=== PATIENT | male | born 1960 | race Two or more races ===

== ENCOUNTER 2018-12-29 20:09 | Emergency (ER) | payer MEDICARE, OTHER ==
[~2018-12-29] VITALS: Ht 172.7 cm; Wt 81.6 kg
[2018-12-29 21:18] LABS: Basophils # (auto) 0 uL; Basophils % (auto) 0.6 % (0.0-2.0); Eosinophils # (auto) 0.2 uL; Eosinophils % (auto) 2.7 % (0.0-7.0); Hematocrit 27.1 % (41.0-53.0); Hemoglobin 9.5 g/dL (13.5-17.5); Lymphocytes # (auto) 0.7 uL; Lymphocytes % (auto) 11.4 % (10.0-50.0); Mean Corpuscular Hgb Conc. 35.1 g/dL (32.0-36.0); Mean Corpuscular Volume 94.2 fL (80.0-100.0); Monocytes # (auto) 0.6 uL; Monocytes % (auto) 9.8 % (0.0-12.0); Neutrophils # (auto) 4.9 uL; Neutrophils % (auto) 75.5 % (37.0-80.0); Platelet Count (auto) 137 10^3/uL (140-450); Red Blood Cells 2.88 10^6/uL (4.5-5.90); Red Cell Distribution Width 14.6 % (11.8-14.3); White Blood Cell 6.5 10^3/uL (4.4-10.8)
[2018-12-29 21:33] LABS: INR 1.09 (0.9-1.15); Partial Thromboplastin Time 59.5 sec (23.64-32.05)
[2018-12-29 21:38] LABS: Albumin 3.5 g/dL (3.4-5.0); Potassium 4.3 mmol/L (3.5-5.1)
[2018-12-29 21:41] LABS: BUN/Creatinine Ratio 4.8; Bilirubin, Total 0.6 mg/dL (0.2-1.0); Total Protein 7.1 g/dL (6.4-8.2)
[2018-12-29 23:01] VITALS: BP 163/67
== END 2018-12-29 23:05 | disposition home or self-care (01) ==
LOC: EDBD 20:09 → ER 20:20
DX: T82.590A Other mechanical complication of surgically created arteriovenous fistula, initial encounter (principal); Y83.9 Surgical procedure, unspecified as the cause of abnormal reaction of the patient, or of later complication, without mention of misadventure at the time of the procedure; Y92.89 Other specified places as the place of occurrence of the external cause
CPT/HCPCS: 36415; 80053; 85025; 85610; 85730

== ENCOUNTER 2019-03-13 15:37 | Emergency (ER) | payer MEDICARE, OTHER ==
[~2019-03-13] VITALS: Ht 180.3 cm; Wt 88.5 kg
[2019-03-13] MEDS ORDERED: ACETAMINOPHEN/CODEINE#3 (300/30mg) TAB PO ONE (19:15)
[2019-03-13 20:17] VITALS: BP 162/73
== END 2019-03-13 20:17 | disposition home or self-care (01) ==
LOC: ER 15:37
DX: M79.662 Pain in left lower leg (principal); M79.661 Pain in right lower leg; L29.9 Pruritus, unspecified; I12.0 Hypertensive chronic kidney disease with stage 5 chronic kidney disease or end stage renal disease; N18.6 End stage renal disease

== ENCOUNTER 2020-02-20 13:56 | Inpatient (IN) | payer OTHER, MEDICAID ==
[~2020-02-20] VITALS: Ht 172.7 cm; Wt 90.7 kg
[2020-02-20] MEDS ORDERED: DexAMETHasone SOD PHOS 10MG/1ML VIAL INJ IV ONE (17:15)
[2020-02-20] MEDS ORDERED: AZITHROMYCIN 500MG/ 250ML 250 ML IV ONE (17:15)
[2020-02-20] MEDS ORDERED: ACETAMINOPHEN 325 MG TAB PO ONE (18:45)
[2020-02-20] MEDS ORDERED: MORPHINE SULF INJ 2 MG/ML SYRINGE 1ML IV PRN (21:15)
[2020-02-20] MEDS ORDERED: ACETAMINOPHEN 500 MG TAB PO PRN (21:15)
[2020-02-20] MEDS ORDERED: DOCUSATE SOD 100 MG CAP PO PRN (21:15)
[2020-02-20] MEDS ORDERED: ONDANSETRON HCL 4 MG/2 ML VIAL IV PRN (21:15)
[2020-02-20] MEDS ORDERED: ACETAMINOPHEN 325 MG TAB PO PRN (21:15)
[2020-02-20 23:08] LABS: Basophils # (auto) 0 10 ^3/uL (0-0.2); Eosinophils # (auto) 0 10 ^3/uL (0-0.8); Eosinophils % (auto) 0.1 % (0.0-7.0); Lymphocytes # (auto) 0.1 10 ^3/uL (0.4-5.4); Lymphocytes % (auto) 3.8 % (10.0-50.0); Monocytes # (auto) 0.1 10 ^3/uL (0-1.3); Monocytes % (auto) 2.9 % (0.0-12.0); Neutrophils # (auto) 2.1 10 ^3/uL (1.6-8.6); Red Blood Cells 2.32 10^6/uL (4.5-5.90); White Blood Cell 2.3 10^3/uL (4.4-10.8)
[2020-02-20 23:09] LABS: Basophils % (auto) 0.3 % (0.0-2.0); Hematocrit 21.4 % (41.0-53.0); Hemoglobin 7.5 g/dL (13.5-17.5); Mean Corpuscular Hemoglobin 32.3 pg (28.0-32.0); Mean Corpuscular Volume 92.2 fL (80.0-100.0); Neutrophils % (auto) 92.9 % (37.0-80.0); Nucleated Red Blood Cells % 0.4 %; Platelet Count (auto) 88 10^3/uL (140-450); Red Cell Distribution Width 17.6 % (11.8-14.3)
[2020-02-20 23:25] LABS: Alanine Aminotransferase 39 U/L (16-61); Albumin 2.6 g/dL (3.4-5.0); Anion Gap 10 (5-15); Aspartate Aminotransferase 56 U/L (15-37); BUN/Creatinine Ratio 11.8; Calcium 9.1 mg/dL (8.5-10.1); Carbon Dioxide 28 mmol/L (21-32); Chloride 94 mmol/L (98-107); GFR African American 9 mL/min; GFR Non-African American 7 mL/min; Glucose 177 mg/dL (74-106); Magnesium 2.5 mg/dL (1.6-2.6); Sodium 132 mmol/L (136-145)
[2020-02-20 23:27] LABS: INR 1.02 (0.9-1.15); Partial Thromboplastin Time 31.9 sec (23.0-31.2)
[2020-02-20 23:30] LABS: Alkaline Phosphatase 133 U/L (45-117); Bilirubin, Total 0.8 mg/dL (0.2-1.0); Total Protein 7.5 g/dL (6.4-8.2)
[2020-02-20 23:37] LABS: Blood Urea Nitrogen 96 mg/dL (7-18); Potassium 5.6 mmol/L (3.5-5.1)
[2020-02-21] MEDS: DOXYCYCLINE 100 MG TAB/CAP PO SCH ×3 (00:37→22:22)
[2020-02-21 01:20] VITALS: BP 140/62
[2020-02-21] MEDS ORDERED: CINA30TA2 PO (03:02)
[2020-02-21] MEDS ORDERED: SENNTAB PO (03:02)
[2020-02-21] MEDS ORDERED: FERR1TAB17 PO (03:02)
[2020-02-21] MEDS ORDERED: CARV6.2551 PO (03:02)
[2020-02-21] MEDS ORDERED: GABA300C10 PO (03:02)
[2020-02-21] MEDS ORDERED: OLAN1TAB19 PO (03:02)
[2020-02-21] MEDS ORDERED: B-COTAB10 PO (03:02)
[2020-02-21] MEDS ORDERED: AMLO5TAB15 PO (03:02)
[2020-02-21] MEDS ORDERED: OMEG1CAP59 PO (03:02)
[2020-02-21] MEDS: HYDROcodone-ACET 5/325MG TAB PO PRN ×4 (03:30→22:54)
[2020-02-21 03:31] VITALS: BP 140/62
[2020-02-21] MEDS: ALBUTEROL SULF HFA 90MCG INH 200DOSE IN SCH ×3 (06:36→18:38)
[2020-02-21] MEDS: SODIUM ZIRCONIUM CYCL 10 GM PAK PO SCH ×3 (06:47→22:22)
[2020-02-21 07:23] LABS: Basophils # (auto) 0 10 ^3/uL (0-0.2); Basophils % (auto) 0.3 % (0.0-2.0); Eosinophils # (auto) 0 10 ^3/uL (0-0.8); Lymphocytes # (auto) 0.1 10 ^3/uL (0.4-5.4); Monocytes # (auto) 0.1 10 ^3/uL (0-1.3); Red Cell Distribution Width 17.4 % (11.8-14.3); White Blood Cell 2.2 10^3/uL (4.4-10.8)
[2020-02-21 07:26] LABS: Hematocrit 24.2 % (41.0-53.0); Hemoglobin 8.3 g/dL (13.5-17.5); Lymphocytes % (auto) 6.1 % (10.0-50.0); Mean Corpuscular Hemoglobin 31.5 pg (28.0-32.0); Mean Corpuscular Hgb Conc. 34.4 g/dL (32.0-36.0); Mean Corpuscular Volume 91.7 fL (80.0-100.0); Monocytes % (auto) 2.4 % (0.0-12.0); Neutrophils % (auto) 91.2 % (37.0-80.0); Nucleated Red Blood Cells % 0.1 %; Platelet Count (auto) 108 10^3/uL (140-450); Red Blood Cells 2.64 10^6/uL (4.5-5.90)
[2020-02-21 07:49] LABS: Potassium 5.4 mmol/L (3.5-5.1)
[2020-02-21 08:00] VITALS: BP 138/68
[2020-02-21 08:25] LABS: Albumin 2.6 g/dL (3.4-5.0); BUN/Creatinine Ratio 11.9; Calcium 9.1 mg/dL (8.5-10.1); Magnesium 2.6 mg/dL (1.6-2.6)
[2020-02-21 08:27] LABS: Bilirubin, Total 0.7 mg/dL (0.2-1.0); Total Protein 7.6 g/dL (6.4-8.2)
[2020-02-21] MEDS ORDERED: ENOXAPARIN SOD 40 MG/0.4 ML SYRINGE SC SCH (10:00)
[2020-02-21] MEDS ORDERED: REMDESIVIR PER PHARMACY 0 ML IV SCH (10:30)
[2020-02-21] MEDS ORDERED: DexAMETHasone SOD PHOS 10MG/1ML VIAL INJ IV ONE (10:30)
[2020-02-21] MEDS ORDERED: CHOLECALCIFEROL (VITD3) 1,000UNIT=25mCg TAB PO ONE (10:30)
[2020-02-21] MEDS: ZINC SULFATE 220mg CAP or TAB PO SCH (10:48)
[2020-02-21] MEDS: ASCORBIC ACID 1,000 MG TAB PO SCH (10:48)
[2020-02-21] MEDS: ENOXAPARIN SOD 30 MG/0.3 ML SYRINGE SC SCH (10:49)
[2020-02-21] MEDS ORDERED: SODIUM CHL 0.9% 1000 ML BAG XX ONE (11:15)
[2020-02-21 16:00] VITALS: BP 142/68
[2020-02-21] MEDS ORDERED: EPOETIN ALFA 4,000 UNIT/ML VL SC ONE (21:00)
[2020-02-21] MEDS ORDERED: REMDESIVIR 200 MG in NS 210ml LOADING DOSE ADULT IV ONE (22:00)
[2020-02-22] VITALS: BP 145/79
[2020-02-22] MEDS: TEMAZEPAM 15 MG CAP PO PRN (00:09)
[2020-02-22] MEDS: HYDROcodone-ACET 5/325MG TAB PO PRN ×2 (05:43→21:25)
[2020-02-22] MEDS: SODIUM ZIRCONIUM CYCL 10 GM PAK PO SCH ×3 (05:52→21:05)
[2020-02-22] MEDS: ALBUTEROL SULF HFA 90MCG INH 200DOSE IN SCH ×3 (06:20→19:46)
[2020-02-22 08:00] VITALS: BP 128/67
[2020-02-22 08:00] LABS: Albumin 2.2 g/dL (3.4-5.0); Calcium 8.7 mg/dL (8.5-10.1); Magnesium 2.3 mg/dL (1.6-2.6); Potassium 4.3 mmol/L (3.5-5.1)
[2020-02-22 08:05] LABS: BUN/Creatinine Ratio 11.7; Basophils # (auto) 0 10 ^3/uL (0-0.2); Bilirubin, Total 0.6 mg/dL (0.2-1.0); Eosinophils # (auto) 0 10 ^3/uL (0-0.8); Lymphocytes # (auto) 0.2 10 ^3/uL (0.4-5.4); Monocytes # (auto) 0.1 10 ^3/uL (0-1.3); Neutrophils # (auto) 3.2 10 ^3/uL (1.6-8.6); Nucleated Red Blood Cells % 0.2 %; Platelet Count (auto) 117 10^3/uL (140-450); Total Protein 6.8 g/dL (6.4-8.2); White Blood Cell 3.5 10^3/uL (4.4-10.8)
[2020-02-22 08:07] LABS: Basophils % (auto) 0.3 % (0.0-2.0); Mean Corpuscular Hgb Conc. 34.6 g/dL (32.0-36.0); Mean Corpuscular Volume 92.8 fL (80.0-100.0); Monocytes % (auto) 3.9 % (0.0-12.0); Neutrophils % (auto) 89.8 % (37.0-80.0); Red Blood Cells 2.15 10^6/uL (4.5-5.90); Red Cell Distribution Width 17.6 % (11.8-14.3)
[2020-02-22 08:58] LABS: Hemoglobin 6.9 g/dL (13.5-17.5)
[2020-02-22] MEDS: ZINC SULFATE 220mg CAP or TAB PO SCH (09:15)
[2020-02-22] MEDS: DOXYCYCLINE 100 MG TAB/CAP PO SCH ×2 (09:15→21:06)
[2020-02-22] MEDS: ENOXAPARIN SOD 30 MG/0.3 ML SYRINGE SC SCH (09:15)
[2020-02-22] MEDS: DexAMETHasone SOD PHOS 10MG/1ML VIAL INJ IV SCH (09:16)
[2020-02-22] MEDS: ASCORBIC ACID 1,000 MG TAB PO SCH (09:16)
[2020-02-22] MEDS ORDERED: CHOLECALCIFEROL (VITD3) 1,000UNIT=25mCg TAB PO SCH (10:00)
[2020-02-22] MEDS ORDERED: ALPRAZolam 0.25 MG TAB PO PRN (10:30)
[2020-02-22] MEDS ORDERED: diphenhdrAMINE HCL 25 MG CAP PO ONE (10:30)
[2020-02-22] MEDS ORDERED: DEXTROSE (50%) 50ML SYRG IV PRN (10:45)
[2020-02-22] MEDS: InsuLIN REG 1unit/0.01ml Soln (100units/ml) SC SCH ×3 (11:30→21:07)
[2020-02-22] MEDS: CHOLECALCIFEROL (VITD3) 2,000 UNIT CAP PO SCH (12:23)
[2020-02-22] MEDS: ACCU-CHEK COMFORT CURVE STRIP VI SCH ×3 (12:24→21:06)
[2020-02-22] MEDS: REMDESIVIR 100 MG in SODIUM CHL 0.9% 250 ML IV SCH (15:00)
[2020-02-22 16:00] VITALS: BP 143/68
[2020-02-23] VITALS (7 sets, daily range): BP systolic 134–165; BP diastolic 63–80
[2020-02-23] MEDS: InsuLIN REG 1unit/0.01ml Soln (100units/ml) SC SCH ×4 (06:12→22:00)
[2020-02-23] MEDS: ACCU-CHEK COMFORT CURVE STRIP VI SCH ×4 (06:12→22:00)
[2020-02-23] MEDS ORDERED: SODIUM CHL 0.9% 1000 ML BAG XX ONE (07:00)
[2020-02-23 07:06] LABS: Basophils # (auto) 0 10 ^3/uL (0-0.2); Eosinophils # (auto) 0 10 ^3/uL (0-0.8); Lymphocytes # (auto) 0.3 10 ^3/uL (0.4-5.4); Lymphocytes % (auto) 7.7 % (10.0-50.0); Monocytes # (auto) 0.2 10 ^3/uL (0-1.3)
[2020-02-23 07:09] LABS: Basophils % (auto) 0.2 % (0.0-2.0); Hematocrit 21.6 % (41.0-53.0); Hemoglobin 7.5 g/dL (13.5-17.5); Mean Corpuscular Hemoglobin 31.7 pg (28.0-32.0); Mean Corpuscular Hgb Conc. 34.5 g/dL (32.0-36.0); Mean Corpuscular Volume 91.9 fL (80.0-100.0); Monocytes % (auto) 6.3 % (0.0-12.0); Neutrophils # (auto) 3.1 10 ^3/uL (1.6-8.6); Neutrophils % (auto) 85.8 % (37.0-80.0); Nucleated Red Blood Cells % 0.3 %; Platelet Count (auto) 115 10^3/uL (140-450); Red Blood Cells 2.35 10^6/uL (4.5-5.90); Red Cell Distribution Width 17.4 % (11.8-14.3); White Blood Cell 3.6 10^3/uL (4.4-10.8)
[2020-02-23 07:30] LABS: Potassium 4.1 mmol/L (3.5-5.1)
[2020-02-23] MEDS: ALBUTEROL SULF HFA 90MCG INH 200DOSE IN SCH ×3 (07:58→19:33)
[2020-02-23 08:01] LABS: Albumin 2.3 g/dL (3.4-5.0); BUN/Creatinine Ratio 13.5; Bilirubin, Total 0.6 mg/dL (0.2-1.0); Calcium 9.2 mg/dL (8.5-10.1); Total Protein 6.9 g/dL (6.4-8.2)
[2020-02-23] MEDS: ZINC SULFATE 220mg CAP or TAB PO SCH (11:00)
[2020-02-23] MEDS: DexAMETHasone SOD PHOS 10MG/1ML VIAL INJ IV SCH (11:00)
[2020-02-23] MEDS: DOXYCYCLINE 100 MG TAB/CAP PO SCH ×2 (11:00→22:00)
[2020-02-23] MEDS: ENOXAPARIN SOD 30 MG/0.3 ML SYRINGE SC SCH (11:01)
[2020-02-23] MEDS: CHOLECALCIFEROL (VITD3) 2,000 UNIT CAP PO SCH (11:01)
[2020-02-23] MEDS: ASCORBIC ACID 1,000 MG TAB PO SCH (11:01)
[2020-02-23] MEDS: HYDROcodone-ACET 5/325MG TAB PO PRN ×2 (14:13→23:15)
[2020-02-23] MEDS: REMDESIVIR 100 MG in SODIUM CHL 0.9% 250 ML IV SCH (16:29)
[2020-02-23] MEDS ORDERED: EPOETIN ALFA 4,000 UNIT/ML VL SC ONE (21:00)
[2020-02-23] MEDS ORDERED: ACETAMINOPHEN 325 MG TAB PO PRN (22:30)
[2020-02-24] VITALS: BP 149/83
[2020-02-24] MEDS: TEMAZEPAM 15 MG CAP PO PRN (01:18)
[2020-02-24] MEDS: InsuLIN REG 1unit/0.01ml Soln (100units/ml) SC SCH ×4 (07:00→21:07)
[2020-02-24] MEDS: ACCU-CHEK COMFORT CURVE STRIP VI SCH ×4 (07:00→21:07)
[2020-02-24] MEDS: ALBUTEROL SULF HFA 90MCG INH 200DOSE IN SCH ×2 (07:38→22:09)
[2020-02-24 07:39] LABS: Basophils # (auto) 0 10 ^3/uL (0-0.2); Eosinophils # (auto) 0 10 ^3/uL (0-0.8); Eosinophils % (auto) 0.1 % (0.0-7.0); Hematocrit 23.7 % (41.0-53.0); Hemoglobin 8.4 g/dL (13.5-17.5); Lymphocytes # (auto) 0.3 10 ^3/uL (0.4-5.4); Neutrophils # (auto) 2.9 10 ^3/uL (1.6-8.6); Platelet Count (auto) 117 10^3/uL (140-450); Red Blood Cells 2.56 10^6/uL (4.5-5.90); White Blood Cell 3.5 10^3/uL (4.4-10.8)
[2020-02-24 07:43] LABS: Albumin 2.2 g/dL (3.4-5.0); BUN/Creatinine Ratio 13.5; Basophils % (auto) 0.2 % (0.0-2.0); Bilirubin, Total 0.5 mg/dL (0.2-1.0); Calcium 9.2 mg/dL (8.5-10.1); Lymphocytes % (auto) 7.9 % (10.0-50.0); Mean Corpuscular Hemoglobin 32.7 pg (28.0-32.0); Mean Corpuscular Hgb Conc. 35.4 g/dL (32.0-36.0); Mean Corpuscular Volume 92.2 fL (80.0-100.0); Monocytes # (auto) 0.3 10 ^3/uL (0-1.3); Monocytes % (auto) 9.6 % (0.0-12.0); Neutrophils % (auto) 82.2 % (37.0-80.0); Nucleated Red Blood Cells % 0.2 %; Potassium 4.3 mmol/L (3.5-5.1); Red Cell Distribution Width 17.1 % (11.8-14.3); Total Protein 6.9 g/dL (6.4-8.2)
[2020-02-24 08:00] VITALS: BP 164/75
[2020-02-24] MEDS: ENOXAPARIN SOD 30 MG/0.3 ML SYRINGE SC SCH ×2 (10:00→10:05)
[2020-02-24] MEDS: DexAMETHasone SOD PHOS 10MG/1ML VIAL INJ IV SCH (10:05)
[2020-02-24] MEDS: ASCORBIC ACID 1,000 MG TAB PO SCH (10:05)
[2020-02-24] MEDS: ZINC SULFATE 220mg CAP or TAB PO SCH (10:05)
[2020-02-24] MEDS: DOXYCYCLINE 100 MG TAB/CAP PO SCH ×2 (10:05→21:06)
[2020-02-24] MEDS: cloNIDine HCL 0.1 MG TAB PO PRN ×2 (10:05→17:58)
[2020-02-24] MEDS: CHOLECALCIFEROL (VITD3) 2,000 UNIT CAP PO SCH (10:05)
[2020-02-24 16:00] VITALS: BP 164/80
[2020-02-24] MEDS: REMDESIVIR 100 MG in SODIUM CHL 0.9% 250 ML IV SCH (16:10)
[2020-02-24 22:10] VITALS: BP 154/75
[2020-02-25] VITALS: BP 173/81
[2020-02-25] MEDS: HYDROcodone-ACET 5/325MG TAB PO PRN ×2 (00:15→06:39)
[2020-02-25] MEDS: cloNIDine HCL 0.1 MG TAB PO PRN ×2 (00:15→16:03)
[2020-02-25] MEDS ORDERED: hydrALAZINE HCL 20 MG/ML VL IV PRN (02:15)
[2020-02-25 03:21] VITALS: BP 163/85
[2020-02-25 05:11] VITALS: BP 157/75
[2020-02-25] MEDS ORDERED: SODIUM CHL 0.9% 1000 ML BAG XX ONE (05:45)
[2020-02-25] MEDS: ACCU-CHEK COMFORT CURVE STRIP VI SCH ×3 (06:13→17:00)
[2020-02-25] MEDS: InsuLIN REG 1unit/0.01ml Soln (100units/ml) SC SCH ×3 (06:14→17:00)
[2020-02-25 07:30] LABS: Potassium 3.9 mmol/L (3.5-5.1)
[2020-02-25 07:39] LABS: Albumin 2.2 g/dL (3.4-5.0); BUN/Creatinine Ratio 13.2; Bilirubin, Total 0.5 mg/dL (0.2-1.0); Calcium 8.8 mg/dL (8.5-10.1); Total Protein 6.6 g/dL (6.4-8.2)
[2020-02-25 08:00] VITALS: BP 153/72
[2020-02-25] MEDS: DexAMETHasone SOD PHOS 10MG/1ML VIAL INJ IV SCH (10:33)
[2020-02-25] MEDS: DOXYCYCLINE 100 MG TAB/CAP PO SCH (10:33)
[2020-02-25] MEDS: ZINC SULFATE 220mg CAP or TAB PO SCH (10:33)
[2020-02-25] MEDS: ENOXAPARIN SOD 30 MG/0.3 ML SYRINGE SC SCH (10:34)
[2020-02-25] MEDS: ASCORBIC ACID 1,000 MG TAB PO SCH (10:34)
[2020-02-25] MEDS: CHOLECALCIFEROL (VITD3) 2,000 UNIT CAP PO SCH (10:34)
[2020-02-25 13:09] VITALS: BP 153/72
[2020-02-25] MEDS: REMDESIVIR 100 MG in SODIUM CHL 0.9% 250 ML IV SCH (15:45)
[2020-02-25 16:21] VITALS: BP 155/75
[2020-02-25] MEDS ORDERED: EPOETIN ALFA 10,000 UNIT/1 ML VIAL SC ONE (21:00)
== END 2020-02-25 17:45 | disposition home or self-care (01) | DRG 177 ==
LOC: ER 13:56 → EDBD 13:56 → TELE 13:57 → TELE-EAST 02-21 01:09 → TELE-E-ADS 02-21 01:09 → TELE-EAST 02-23 22:03
PROVIDERS: ADMIT Hospitalist; ATTEND Internal Medicine Geriatric Medicine
PROC: XW033E5 Introduction of Remdesivir Anti-infective into Peripheral Vein, Percutaneous Approach, New Technology Group 5 (ICD-10-PCS; principal; 2020-02-21)
PROC: 5A1D70Z Performance of Urinary Filtration, Intermittent, Less than 6 Hours Per Day (ICD-10-PCS; 2020-02-21)
PROC: 5A1D70Z Performance of Urinary Filtration, Intermittent, Less than 6 Hours Per Day (ICD-10-PCS; 2020-02-22)
PROC: 30233N1 Transfusion of Nonautologous Red Blood Cells into Peripheral Vein, Percutaneous Approach (ICD-10-PCS; 2020-02-23)
PROC: 5A1D70Z Performance of Urinary Filtration, Intermittent, Less than 6 Hours Per Day (ICD-10-PCS; 2020-02-25)
DX: U07.1 COVID-19 (principal); J96.01 Acute respiratory failure with hypoxia; N18.6 End stage renal disease; J12.82 Pneumonia due to coronavirus disease 2019; I12.0 Hypertensive chronic kidney disease with stage 5 chronic kidney disease or end stage renal disease; Z99.2 Dependence on renal dialysis; F20.9 Schizophrenia, unspecified; Z68.30 Body mass index [BMI] 30.0-30.9, adult; D63.1 Anemia in chronic kidney disease; E11.22 Type 2 diabetes mellitus with diabetic chronic kidney disease; E66.9 Obesity, unspecified; E78.5 Hyperlipidemia, unspecified; E87.5 Hyperkalemia; Z82.0 Family history of epilepsy and other diseases of the nervous system; Z82.49 Family history of ischemic heart disease and other diseases of the circulatory system; Z82.5 Family history of asthma and other chronic lower respiratory diseases; Z83.3 Family history of diabetes mellitus
CPT/HCPCS: 36415; 71045; 80053; 82728; 82962; 83615; 83735; 83880; 84484; 85025; 85610; 85730; 86141; 86850; 86900; 86901; 86920; 87081; 87426; 90935; 94640; 96365; 96366; 96375; 97163; 99291; G0378; J0885; J1100; J1642; J1815